=== PATIENT | female | born 1995 | race Caucasian/White ===

== ENCOUNTER 2019-01-02 07:38 | Emergency (ER) | payer MEDICAID ==
[2019-01-02] MEDS ORDERED: HYDROcodone/Acetaminophen 5/325 mg Tablet ONE (08:01)
--- NOTE | 2019-01-02 08:48 | RAD ---
EXAM: Left rib series with chest x-ray HISTORY: Rib pain after falling down stairs COMPARISON: None FINDINGS: Single view of the chest shows a normal sized cardiomediastinal silhouette. There is no erika dence of consolidation, mass, or pleural effusion. Multiple views of the left ribs shows no evidence of displaced rib fracture. No underlying pleural th ickening or pneumothorax are seen. IMPRESSION: 1. No evidence of displaced rib fracture. 2. No evidence of acute cardiopulmonary disease.
== END 2019-01-02 08:59 | disposition home or self-care (01) ==
LOC: BURERS 07:38
DX: S22.32XA Fracture of one rib, left side, initial encounter for closed fracture (principal); J45.909 Unspecified asthma, uncomplicated; F32.9 Major depressive disorder, single episode, unspecified; F17.210 Nicotine dependence, cigarettes, uncomplicated; Z79.899 Other long term (current) drug therapy; Z79.51 Long term (current) use of inhaled steroids; W10.9XXA Fall (on) (from) unspecified stairs and steps, initial encounter